=== PATIENT | female | born 1965 | race African-American/Black ===

== ENCOUNTER 2016-08-18 12:18 | Emergency (ER) | payer MEDICAID ==
[~2016-08-18] VITALS: Ht 271.8 cm; Wt 59.0 kg
[2016-08-18] MEDS ORDERED: ACET-2178 PO (12:44)
[2016-08-18] MEDS ORDERED: ACETAMINOPHEN 650MG/20.3ML UDC PO ONE (13:15)
[2016-08-18 13:29] VITALS: BP 139/75
== END 2016-08-18 13:30 | disposition home or self-care (01) ==
LOC: ER 13:01
DX: L03.116 Cellulitis of left lower limb (principal); L03.115 Cellulitis of right lower limb; M19.90 Unspecified osteoarthritis, unspecified site; R56.9 Unspecified convulsions; G89.29 Other chronic pain; F17.290 Nicotine dependence, other tobacco product, uncomplicated; Z90.49 Acquired absence of other specified parts of digestive tract; Z98.51 Tubal ligation status; Z88.5 Allergy status to narcotic agent; Z88.6 Allergy status to analgesic agent
CPT/HCPCS: 99283